=== PATIENT | female | born 1930 | race Caucasian/White ===

== ENCOUNTER 2017-08-14 20:25 | Emergency (ER) | payer OTHER ==
[~2017-08-14] VITALS: Ht 152.4 cm; Wt 56.7 kg
[2017-08-14] MEDS ORDERED: SYNTHROID25 MCG PO (21:02)
[2017-08-14] MEDS ORDERED: COZAAR 50 MG TA50 M2 PO (21:03)
[2017-08-14] MEDS ORDERED: CLONIDINE0.1 PO (21:03)
[2017-08-14] MEDS ORDERED: XANAX 0.5 MG0.5 MG PO (21:03)
[2017-08-14] MEDS ORDERED: MIRAPEX 0.250.25 M1 PO (21:04)
[2017-08-14] MEDS ORDERED: XARELTO15 MG PO (21:04)
[2017-08-14] MEDS ORDERED: ARIMIDEX PO (21:05)
[2017-08-14] MEDS ORDERED: ISOSORBIDE MONO30 M1 PO (21:06)
[2017-08-14] MEDS ORDERED: NITROGLYCERIN0.4 MG SUBLING (21:06)
[2017-08-14] MEDS ORDERED: CARVEDILOL6.25 MG (21:07)
[2017-08-14] MEDS ORDERED: ATORVASTATIN CA40 MG PO (21:07)
[2017-08-14] MEDS ORDERED: COSOPT OCUMETER10 ML OPHTHALMIC (21:08)
[2017-08-14] MEDS ORDERED: LUMIGAN2.5 M1 OPHTHALMIC (21:09)
[2017-08-14] MEDS ORDERED: MIRALAX17 GM PO (22:49)
[2017-08-14] MEDS ORDERED: SENNA8.6 MG PO (22:49)
[2017-08-14 23:08] VITALS: BP 126/62
== END 2017-08-14 23:17 | disposition home or self-care (01) ==
LOC: ER 20:25
DX: K59.00 Constipation, unspecified (principal); I10 Essential (primary) hypertension; I48.91 Unspecified atrial fibrillation; Z95.0 Presence of cardiac pacemaker